=== PATIENT | male | born 1975 | race Caucasian/White ===

== ENCOUNTER 2021-04-13 10:49 | Emergency (ER) | payer OTHER ==
[~2021-04-13] VITALS: Ht 185.4 cm; Wt 125.0 kg
[2021-04-13 10:52] VITALS: BP 146/116
[2021-04-13] MEDS ORDERED: HYDROCODONE/ACETAMINOPHEN 5-325 MG TABLET PO ONE (11:30)
[2021-04-13] MEDS ORDERED: IBUPROFEN 800 MG TABLET PO ONE (11:30)
[2021-04-13] MEDS ORDERED: LIDOCAINE 5% TRANSDERMAL PATCH TD ONE (12:30)
== END 2021-04-13 14:00 | disposition home or self-care (01) ==
LOC: EMS 10:52
DX: R07.1 Chest pain on breathing (principal); Y04.0XXA Assault by unarmed brawl or fight, initial encounter; Y93.89 Activity, other specified; Y92.89 Other specified places as the place of occurrence of the external cause; Y99.8 Other external cause status
CPT/HCPCS: 71046; 99284; G0238

== ENCOUNTER 2022-02-08 15:23 | Emergency (ER) | payer OTHER ==
[~2022-02-08] VITALS: Ht 185.4 cm; Wt 113.6 kg
[2022-02-08] MEDS ORDERED: LEVE500T8 PO (15:41)
[2022-02-08] MEDS ORDERED: LAMO200T10 PO (16:12)
[2022-02-08] MEDS ORDERED: IBUPROFEN 600 MG TABLET PO ONE (16:15)
[2022-02-08] MEDS ORDERED: PERTUSS(ACELL),DIPH,TET VAC/PF 0.5 ML SYRINGE IM. ONE (16:15)
[2022-02-08] MEDS ORDERED: IBUPROFEN 100 MG/5 ML SUSPENSION UDCUP PO ONE (17:00)
[2022-02-08] MEDS ORDERED: IBUP-2492 PO (18:46)
[2022-02-08 18:47] VITALS: BP 132/86
[2022-02-08] MEDS ORDERED: AMOX1TAB16 PO (18:48)
== END 2022-02-08 19:43 | disposition home or self-care (01) ==
LOC: EMS 15:23
DX: S02.2XXA Fracture of nasal bones, initial encounter for closed fracture (principal); S01.81XA Laceration without foreign body of other part of head, initial encounter; M25.531 Pain in right wrist; Y08.89XA Assault by other specified means, initial encounter; Y93.89 Activity, other specified; Y92.89 Other specified places as the place of occurrence of the external cause; Y99.8 Other external cause status
CPT/HCPCS: 70450; 70486; 72125; 90471; 90715; 99284